=== PATIENT | female | born 1980 | race Caucasian/White ===

== ENCOUNTER → 2022-04-16 | Outpatient (CLI) | payer BC ==
[~2022-04-16] MED LIST: ACET500 PO; CLON2 PO; DOCU100 PO; DULCOLAX400 MG/5 M PO; FLUO10; IBUP400 PO; KETAMINE; LEVSOD137 PO; LITH300C PO; LORA.5; Lithium Carbon450 MG PO; METF500 PO; MIRT30ST PO; NURTEC ODT75 MG PO; ONDA4 PO; Oxycodone HCl20 M1 PO; PREG100 PO; SIME80CH PO; SUBUTEX SL; VENL25 PO; ZOLP10 PO
[2022-04-16 10:43] LABS: Source, Urine Clean Catch
[2022-04-16 13:08] LABS: Appearance, Urine Hazy (Clear); Bilirubin, Urine Neg (Neg); Blood, Urine 1+ (Neg); Color, Urine Yellow (P-Yellow); Glucose Qualitative, Urine Neg (Neg); Ketones, Urine Neg (Neg); Leukocyte Esterase, Urine 2+ (Neg); Nitrite, Urine Neg (Neg); Protein, Urine Neg (Neg); Specific Gravity, Urine 1.015 (1.003-1.022); Urobilinogen, Urine NORM (Normal); pH, Urine 6.5 (5.0-8.0)
[2022-04-16 14:14] LABS: Bacteria Many /hpf; Red Blood Cells, Urine 0-2 /hpf (0-2); Squamous Epithelial Cells Mod /hpf (Few)
== END | disposition home or self-care (01) ==
LOC: LAB SHORT 10:40 → LAB 10:40
PROVIDERS: Obstetrics & Gynecology
DX: R39.198 Other difficulties with micturition (principal)
CPT/HCPCS: 81001; 87086

== ENCOUNTER → 2022-10-08 | Outpatient (CLI) | payer BC ==
[2022-10-09 09:57] LABS: Candida species (DNA Probe) Negative (NEGATIVE); G. vaginalis (DNA Probe) Positive (NEGATIVE); T. vaginalis (DNA Probe) Negative (NEGATIVE)
== END | disposition home or self-care (01) ==
LOC: LAB SHORT 15:18 → LAB 15:18
PROVIDERS: Advanced Practice Midwife
DX: R30.0 Dysuria (principal); R10.2 Pelvic and perineal pain
CPT/HCPCS: 87077; 87086; 87186; 87480; 87510; 87660